=== PATIENT | male | born 1955 | race Caucasian/White ===

== ENCOUNTER 2022-10-31 12:40 | Emergency (ER) | payer MEDICARE, MEDICAID ==
[2022-10-31] MEDS: Albuterol/Ipratropium 3.0-0.5 MG/3 ML Neb Soln NEB ONE (13:20)
[2022-10-31] MEDS: Ketorolac 30 MG/ML SDV IVPUSH ONE (13:23)
[2022-10-31] MEDS: Dexamethasone 4 MG/ML SDV IVPUSH ONE (13:27)
[2022-10-31] MEDS: Iopamidol 755 Mg/ML 100 ML Bottle IVPUSH ONE (14:06)
[2022-10-31 14:31] LABS: CORONAVIRUS COVID-19 NAA NEGATIVE (NEGATIVE); RESPIRATORY SYNCYTIAL VIR NAA NEGATIVE (NEGATIVE)
[2022-10-31] MEDS: Sodium Chloride 0.9% 1,000 ML IV ONE ×4 (14:43→16:49)
[2022-10-31] MEDS ORDERED: Sodium Chloride 0.9% 1,000 ML IV SCH (16:45)
[2022-10-31] MEDS: Piperacillin/Tazobactam 4.5 GM in Sodium Chloride 0.9% 100 ML IV ONE (16:51)
== END 2022-10-31 17:45 ==
LOC: CC.ED 12:40
DX: A41.9 Sepsis, unspecified organism (principal); R65.20 Severe sepsis without septic shock; J96.01 Acute respiratory failure with hypoxia; N30.01 Acute cystitis with hematuria; J18.9 Pneumonia, unspecified organism; Z20.822 Contact with and (suspected) exposure to COVID-19
CPT/HCPCS: 0241U; 36415; 70450; 71045; 71275; 74177; 80053; 81001; 82800; 82947; 83605; 83735; 83880; 84484; 85025; 87040; 87086; 87088; 87186; 93005; 93010; 94640; 96361; 96365; 96367; 96375; 99285; 99285-25; J1100; J1885; J2543; J3370; J7030; J7050; J7620-GY; Q9967

== ENCOUNTER 2023-04-14 18:00 | Emergency (ER) | payer MEDICARE, MEDICAID ==
[2023-04-14 18:35] LABS: BASOPHILS ABSOLUTE AUTO 0.02 10^3/uL (0.00-0.50); BASOPHILS PERCENT AUTO 0.3 % (0-1); EOSINOPHILS ABSOLUTE AUTO 0.18 10^3/uL (0.00-1.50); EOSINOPHILS PERCENT AUTO 2.3 % (0-6); HEMATOCRIT 35.6 % (42.0-52.0); HEMOGLOBIN 11.4 g/dL (14.0-18.0); IMMATURE GRAN ABSOLUTE AUTO 0.07 10^3/uL (0.00-0.49); IMMATURE GRAN PERCENT AUTO 0.9 % (0.0-4.9); LYMPHOCYTES ABSOLUTE AUTO 1.66 10^3/uL (0.60-5.00); LYMPHOCYTES PERCENT AUTO 21.1 % (24-44); MEAN CORPUSCULAR HEMOGLOBIN 31.8 pg (27.0-32.0); MEAN CORPUSCULAR VOLUME 99.2 fL (83.0-97.0); MONOCYTES ABSOLUTE AUTO 0.61 10^3/uL (0.00-1.50); MONOCYTES PERCENT AUTO 7.7 % (0-10); NEUTROPHILS ABSOLUTE AUTO 5.34 x10^3/uL (1.80-8.00); NEUTROPHILS PERCENT AUTO 67.7 % (41-71); PLATELET COUNT,PLT 231 10^3/uL (150-400); RED BLOOD CELL COUNT 3.59 x10^6/uL (4.50-6.00); WHITE BLOOD CELL COUNT,WBC 7.9 10^3/uL (4.0-11.0)
[2023-04-14 18:37] LABS: APPEARANCE,URINE CLEAR (CLEAR); BILIRUBIN,URINE NEGATIVE (NEGATIVE); COLOR,URINE YELLOW (YELLOW); GLUCOSE,URINE NEGATIVE (NEGATIVE); KETONES,URINE NEGATIVE (NEGATIVE); LEUKOCYTE ESTERASE,URINE NEGATIVE (NEGATIVE); NITRITE,URINE NEGATIVE (NEGATIVE); OCCULT BLOOD,URINE TRACE-INTACT (NEGATIVE); PROTEIN,URINE TRACE mg/dL (NEGATIVE); UROBILINOGEN,URINE 0.2 EU/dL (0.2-1.0)
[2023-04-14 18:45] LABS: ALBUMIN 2.7 g/dL (3.4-5.0); BACTERIA,URINE OCCASIONAL /HPF (NOT SEEN); BILIRUBIN TOTAL 0.2 mg/dL (0.0-1.0); CALCIUM 8.9 mg/dL (8.4-10.1); EST CRCL DRUG DOSING (CG) 24.49 mL/min; POTASSIUM,K 5.4 mEq/L (3.5-5.0); PROTEIN TOTAL,TP 7.9 g/dL (6.4-8.2); SQUAMOUS EPITHELIAL CELLS,UR MODERATE /HPF (NOT SEEN)
[2023-04-14 18:48] LABS: CREATININE 3.3 mg/dL (0.7-1.3)
[2023-04-14] MEDS ORDERED: Sodium Chloride 0.9% 1,000 ML IV ONE (18:53)
== END 2023-04-14 21:45 | disposition home or self-care (01) ==
LOC: CC.ED 18:00
DX: I13.0 Hypertensive heart and chronic kidney disease with heart failure and stage 1 through stage 4 chronic kidney disease, or unspecified chronic kidney disease (principal); I50.9 Heart failure, unspecified; N18.31 Chronic kidney disease, stage 3a; E11.22 Type 2 diabetes mellitus with diabetic chronic kidney disease; I48.91 Unspecified atrial fibrillation; E78.00 Pure hypercholesterolemia, unspecified; M19.90 Unspecified osteoarthritis, unspecified site; E66.9 Obesity, unspecified; Z79.01 Long term (current) use of anticoagulants; Z79.4 Long term (current) use of insulin; Z79.84 Long term (current) use of oral hypoglycemic drugs; Z79.82 Long term (current) use of aspirin; Z79.899 Other long term (current) drug therapy
CPT/HCPCS: 36415; 71045; 80053; 81001; 85025; 87804; 96360; 96361; 99284; 99285-25; J7030; U0002

== ENCOUNTER 2023-07-02 15:45 | Inpatient (IN) | payer MEDICARE, MEDICAID ==
[2023-07-02] MEDS ORDERED: Sodium Chloride 0.9% 1,000 ML IV ONE ×2 (15:56→17:34)
[2023-07-02] MEDS ORDERED: Albuterol/Ipratropium 3.0-0.5 MG/3 ML Neb Soln NEB ONE (15:57)
[2023-07-02 16:23] LABS: BASOPHILS ABSOLUTE AUTO 0.04 10^3/uL (0.00-0.50); BASOPHILS PERCENT AUTO 0.4 % (0-1); EOSINOPHILS ABSOLUTE AUTO 0.02 10^3/uL (0.00-1.50); EOSINOPHILS PERCENT AUTO 0.2 % (0-6); HEMATOCRIT 39.2 % (42.0-52.0); IMMATURE GRAN ABSOLUTE AUTO 0.05 10^3/uL (0.00-0.49); IMMATURE GRAN PERCENT AUTO 0.5 % (0.0-4.9); LYMPHOCYTES ABSOLUTE AUTO 1.36 10^3/uL (0.60-5.00); LYMPHOCYTES PERCENT AUTO 13.4 % (24-44); MEAN CORPUSCULAR HEMOGLOBIN 31.9 pg (27.0-32.0); MEAN CORPUSCULAR HGB CONC 33.2 g/dL (32.0-36.0); MEAN CORPUSCULAR VOLUME 96.3 fL (83.0-97.0); MONOCYTES ABSOLUTE AUTO 0.95 10^3/uL (0.00-1.50); MONOCYTES PERCENT AUTO 9.3 % (0-10); NEUTROPHILS ABSOLUTE AUTO 7.75 x10^3/uL (1.80-8.00); NEUTROPHILS PERCENT AUTO 76.2 % (41-71); PLATELET COUNT,PLT 200 10^3/uL (150-400); RED BLOOD CELL COUNT 4.07 x10^6/uL (4.50-6.00); WHITE BLOOD CELL COUNT,WBC 10.2 10^3/uL (4.0-11.0)
[2023-07-02 16:38] LABS: LACTIC ACID 3.4 mmol/L (0.4-2.0)
[2023-07-02 16:45] LABS: ALBUMIN 2.6 g/dL (3.4-5.0); BILIRUBIN TOTAL 0.4 mg/dL (0.0-1.0); C-REACTIVE PROTEIN 5.36 mg/dL (<=0.30); CALCIUM 9.1 mg/dL (8.4-10.1); CREATININE 2.3 mg/dL (0.7-1.3); EST CRCL DRUG DOSING (CG) 34.68 mL/min; POTASSIUM,K 3.6 mEq/L (3.5-5.0); PROTEIN TOTAL,TP 7.7 g/dL (6.4-8.2)
[2023-07-02 17:00] LABS: INFLUENZA A NAA NEGATIVE (NEGATIVE); INFLUENZA B NAA NEGATIVE (NEGATIVE); RESPIRATORY SYNCYTIAL VIR NAA NEGATIVE (NEGATIVE)
[2023-07-02 17:02] LABS: CORONAVIRUS COVID-19 NAA POSITIVE (NEGATIVE)
[2023-07-02 17:48] LABS: APPEARANCE,URINE SLIGHTLY CLOUDY (CLEAR); BILIRUBIN,URINE NEGATIVE (NEGATIVE); COLOR,URINE YELLOW (YELLOW); GLUCOSE,URINE NEGATIVE (NEGATIVE); KETONES,URINE NEGATIVE (NEGATIVE); LEUKOCYTE ESTERASE,URINE SMALL (NEGATIVE); NITRITE,URINE POSITIVE (NEGATIVE); OCCULT BLOOD,URINE MODERATE (NEGATIVE); PROTEIN,URINE NEGATIVE (NEGATIVE); UROBILINOGEN,URINE 0.2 EU/dL (0.2-1.0)
[2023-07-02 17:54] LABS: RBC,URINE 50-75 /HPF (0-5)
[2023-07-02] MEDS ORDERED: cefTRIAXone 2 GM Vial IVPUSH ONE (17:54)
[2023-07-02 17:55] LABS: BACTERIA,URINE FEW /HPF (NOT SEEN); SQUAMOUS EPITHELIAL CELLS,UR OCCASIONAL /HPF (NOT SEEN)
[2023-07-02] MEDS ORDERED: Azithromycin 500 MG in Sodium Chloride 0.9% 250 ML IV SCH (18:30)
[2023-07-02 18:50] LABS: INR 3.2 (0.92-1.18); PROTHROMBIN TIME 31.8 SEC (9.3-11.3)
[2023-07-02] MEDS ORDERED: Albuterol 0.083% 2.5 MG/3 ML Neb Soln NEB ONE (19:01)
[2023-07-02] MEDS ORDERED: Ondansetron 4 MG Tab.DIS PO PRN (19:04)
[2023-07-02] MEDS ORDERED: REMDESIVIR 200 MG in Sodium Chloride 0.9% 250 ML IV ONE (19:04)
[2023-07-02] MEDS ORDERED: Albuterol 0.083% 2.5 MG/3 ML Neb Soln NEB PRN (19:04)
[2023-07-02] MEDS ORDERED: Docusate Sodium 100 MG Cap PO PRN (19:04)
[2023-07-02] MEDS ORDERED: Acetaminophen 325 MG Tab PO PRN (19:04)
[2023-07-02] MEDS ORDERED: Polyethylene Glycol 3350 Powder 17 GM Packet PO PRN (19:04)
[2023-07-02] MEDS ORDERED: Ondansetron 4 MG/2 ML SDV IV PRN (19:04)
[2023-07-02] MEDS ORDERED: Sodium Chloride 0.9% 10 ML Syringe FLUSH PRN (19:04)
[2023-07-02] MEDS ORDERED: Acetaminophen 650 MG Supp RECTAL PRN (19:04)
[2023-07-02 19:38] LABS: ALBUMIN 2.5 g/dL (3.4-5.0); BILIRUBIN DIRECT 0.1 mg/dL (0.0-0.3); BILIRUBIN TOTAL 0.3 mg/dL (0.0-1.0); CALCIUM 8.7 mg/dL (8.4-10.1); CREATININE 2.2 mg/dL (0.7-1.3); EST CRCL DRUG DOSING (CG) 36.25 mL/min; POTASSIUM,K 3.1 mEq/L (3.5-5.0); PROTEIN TOTAL,TP 7.6 g/dL (6.4-8.2)
[2023-07-02] MEDS ORDERED: 50% Dextrose in Water 50 ML Syringe ONE (19:43)
[2023-07-02] MEDS ORDERED: 50% Dextrose in Water 50 ML Syringe IVPUSH ONE (19:45)
[2023-07-02] MEDS: Sodium Chloride 0.9% 1,000 ML IV SCH (19:47)
[2023-07-02] MEDS: methylPREDNISolone Sodium Succinate 125 MG/2 ML SDV IVPUSH SCH (19:51)
[2023-07-02] MEDS: Albuterol/Ipratropium 3.0-0.5 MG/3 ML Neb Soln NEB SCH (19:51)
[2023-07-02] MEDS ORDERED: Potassium Chloride 10 MEQ Tab.ER PO ONE (20:42)
[2023-07-02] MEDS ORDERED: guaiFENesin/Dextromethorphan 100-10 MG/5 ML Soln 5 ML Cup PO PRN (20:44)
[2023-07-02] MEDS ORDERED: Magnesium Hydroxide 400 MG/5 ML Susp 30 ML Cup PO PRN (20:44)
[2023-07-02] MEDS ORDERED: Warfarin 5 MG Tab PO SCH (20:45)
[2023-07-02] MEDS ORDERED: 50% Dextrose in Water 50 ML Syringe IVPUSH PRN (20:49)
[2023-07-02] MEDS ORDERED: Insulin Regular, Human 100 Units/ML 3 ML Vial IV ONE ×2 (20:49)
[2023-07-02] MEDS ORDERED: Glucagon,Human Recombinant 1 MG Vial IM PRN (20:49)
[2023-07-03] MEDS ORDERED: Insulin Regular, Human 100 Units/ML 3 ML Vial SUBCUT SCH (06:00)
[2023-07-03] MEDS: Sodium Chloride 0.9% 1,000 ML IV SCH ×2 (07:05→23:41)
[2023-07-03] MEDS ORDERED: Divalproex Sodium 250 MG Tab.ER PO SCH (08:00)
[2023-07-03] MEDS: Insulin Regular, Human 100 Units/ML 3 ML Vial SUBCUT SCH ×4 (08:14→20:09)
[2023-07-03] MEDS: Albuterol/Ipratropium 3.0-0.5 MG/3 ML Neb Soln NEB SCH ×4 (08:15→19:29)
[2023-07-03] MEDS: Carvedilol 12.5 MG Tab PO SCH ×2 (08:16→17:24)
[2023-07-03] MEDS: metFORMIN 500 MG Tab PO SCH ×2 (08:16→17:24)
[2023-07-03] MEDS: Cyanocobalamin (Vitamin B12) 1,000 MCG Tab PO SCH (08:16)
[2023-07-03] MEDS: Aspirin 81 MG Tab.EC PO SCH (08:17)
[2023-07-03] MEDS: Carbidopa/Levodopa 25-100 MG Tab PO SCH ×2 (08:17→19:31)
[2023-07-03] MEDS: Potassium Chloride 10 MEQ Tab.ER PO SCH ×2 (08:17→19:29)
[2023-07-03] MEDS: Gabapentin 300 MG Cap PO SCH ×3 (08:17→19:30)
[2023-07-03] MEDS: Divalproex Sodium 250 MG Tab.ER PO SCH ×3 (08:17→19:28)
[2023-07-03] MEDS: Propranolol 60 MG Cap.ER PO SCH (08:17)
[2023-07-03] MEDS: Allopurinol 100 MG Tab PO SCH ×2 (08:17→19:32)
[2023-07-03] MEDS: ZIPRASIDONE HCL 80 MG PO SCH ×2 (08:18→19:34)
[2023-07-03] MEDS: LURASIDONE 40 MG PO SCH (08:19)
[2023-07-03 08:21] LABS: HEMATOCRIT 37.3 % (42.0-52.0); HEMOGLOBIN 12.3 g/dL (14.0-18.0); IMMATURE GRAN ABSOLUTE AUTO 0.02 10^3/uL (0.00-0.49); IMMATURE GRAN PERCENT AUTO 0.2 % (0.0-4.9); LYMPHOCYTES ABSOLUTE AUTO 0.66 10^3/uL (0.60-5.00); LYMPHOCYTES PERCENT AUTO 5.9 % (24-44); MEAN CORPUSCULAR HEMOGLOBIN 31.9 pg (27.0-32.0); MEAN CORPUSCULAR VOLUME 96.6 fL (83.0-97.0); MONOCYTES ABSOLUTE AUTO 0.21 10^3/uL (0.00-1.50); MONOCYTES PERCENT AUTO 1.9 % (0-10); NEUTROPHILS ABSOLUTE AUTO 10.28 x10^3/uL (1.80-8.00); PLATELET COUNT,PLT 184 10^3/uL (150-400); RED BLOOD CELL COUNT 3.86 x10^6/uL (4.50-6.00); WHITE BLOOD CELL COUNT,WBC 11.2 10^3/uL (4.0-11.0)
[2023-07-03 08:29] LABS: INR 4.57 (0.92-1.18)
[2023-07-03 08:36] LABS: ALBUMIN 2.2 g/dL (3.4-5.0); BILIRUBIN TOTAL 0.2 mg/dL (0.0-1.0); C-REACTIVE PROTEIN 6.59 mg/dL (<=0.30); CALCIUM 8.5 mg/dL (8.4-10.1); CREATININE 1.7 mg/dL (0.7-1.3); EST CRCL DRUG DOSING (CG) 46.92 mL/min; POTASSIUM,K 4.1 mEq/L (3.5-5.0); PROTEIN TOTAL,TP 7.3 g/dL (6.4-8.2)
[2023-07-03 09:28] LABS: LACTIC ACID 1.9 mmol/L (0.4-2.0)
[2023-07-03] MEDS ORDERED: Warfarin 2.5 MG Tab PO SCH (12:00)
[2023-07-03] MEDS: REMDESIVIR 100 MG in Sodium Chloride 0.9% 100 ML IV SCH (17:46)
[2023-07-03] MEDS: cefTRIAXone 2 GM Vial IVPUSH SCH (17:49)
[2023-07-03] MEDS ORDERED: Azithromycin 500 MG in Sodium Chloride 0.9% 250 ML IV SCH (18:00)
[2023-07-03] MEDS: Amitriptyline 25 MG Tab PO SCH (19:29)
[2023-07-03] MEDS: atorvaSTATin 20 MG Tab PO SCH (19:30)
[2023-07-03] MEDS: oxyCODONE 5 MG Tab PO SCH (19:30)
[2023-07-03] MEDS: Acetaminophen 500 MG Tab PO SCH (19:31)
[2023-07-03] MEDS: methylPREDNISolone Sodium Succinate 125 MG/2 ML SDV IVPUSH SCH (19:31)
[2023-07-03] MEDS: Azithromycin 500 MG in Sodium Chloride 0.9% 250 ML IV SCH (19:32)
[2023-07-03] MEDS ORDERED: Oxymetazoline 0.05% Nasal Spray 30 ML Bottle NAS ONE (20:58)
[2023-07-03] MEDS ORDERED: Oxymetazoline 0.05% Nasal Spray 30 ML Bottle ONE (21:07)
[2023-07-03] MEDS: Sodium Chloride 0.65% Nasal Spray 45 ML Bottle NAS SCH (21:29)
[2023-07-04] MEDS: Sodium Chloride 0.65% Nasal Spray 45 ML Bottle NAS SCH ×6 (01:22→22:23)
[2023-07-04 07:29] LABS: HEMOGLOBIN 11.2 g/dL (14.0-18.0); IMMATURE GRAN ABSOLUTE AUTO 0.03 10^3/uL (0.00-0.49); IMMATURE GRAN PERCENT AUTO 0.4 % (0.0-4.9); LYMPHOCYTES ABSOLUTE AUTO 0.85 10^3/uL (0.60-5.00); LYMPHOCYTES PERCENT AUTO 11.4 % (24-44); MEAN CORPUSCULAR HEMOGLOBIN 31.9 pg (27.0-32.0); MEAN CORPUSCULAR HGB CONC 32.9 g/dL (32.0-36.0); MEAN CORPUSCULAR VOLUME 96.9 fL (83.0-97.0); MONOCYTES ABSOLUTE AUTO 0.18 10^3/uL (0.00-1.50); MONOCYTES PERCENT AUTO 2.4 % (0-10); NEUTROPHILS ABSOLUTE AUTO 6.39 x10^3/uL (1.80-8.00); NEUTROPHILS PERCENT AUTO 85.8 % (41-71); PLATELET COUNT,PLT 191 10^3/uL (150-400); RED BLOOD CELL COUNT 3.51 x10^6/uL (4.50-6.00); WHITE BLOOD CELL COUNT,WBC 7.5 10^3/uL (4.0-11.0)
[2023-07-04] MEDS: LURASIDONE 40 MG PO SCH (07:48)
[2023-07-04 07:49] LABS: BILIRUBIN TOTAL 0.2 mg/dL (0.0-1.0); C-REACTIVE PROTEIN 4.38 mg/dL (<=0.30); CALCIUM 8.4 mg/dL (8.4-10.1); CREATININE 1.4 mg/dL (0.7-1.3); EST CRCL DRUG DOSING (CG) 56.97 mL/min; POTASSIUM,K 4.2 mEq/L (3.5-5.0); PROTEIN TOTAL,TP 6.6 g/dL (6.4-8.2)
[2023-07-04] MEDS: Cyanocobalamin (Vitamin B12) 1,000 MCG Tab PO SCH (07:49)
[2023-07-04] MEDS: ZIPRASIDONE HCL 80 MG PO SCH ×2 (07:49→19:47)
[2023-07-04] MEDS: Albuterol/Ipratropium 3.0-0.5 MG/3 ML Neb Soln NEB SCH ×4 (07:49→19:46)
[2023-07-04 07:50] LABS: PROTHROMBIN TIME 50.1 SEC (9.3-11.3)
[2023-07-04] MEDS: Carbidopa/Levodopa 25-100 MG Tab PO SCH ×2 (07:50→19:44)
[2023-07-04] MEDS: Potassium Chloride 10 MEQ Tab.ER PO SCH ×2 (07:50→19:44)
[2023-07-04] MEDS: Propranolol 60 MG Cap.ER PO SCH (07:50)
[2023-07-04] MEDS: Allopurinol 100 MG Tab PO SCH ×2 (07:50→19:44)
[2023-07-04] MEDS: Divalproex Sodium 250 MG Tab.ER PO SCH ×3 (07:50→19:44)
[2023-07-04] MEDS: Gabapentin 300 MG Cap PO SCH ×3 (07:51→19:44)
[2023-07-04] MEDS: Aspirin 81 MG Tab.EC PO SCH (07:51)
[2023-07-04] MEDS: Carvedilol 12.5 MG Tab PO SCH ×2 (07:51→17:10)
[2023-07-04] MEDS: metFORMIN 500 MG Tab PO SCH ×2 (07:51→17:10)
[2023-07-04] MEDS: Insulin Regular, Human 100 Units/ML 3 ML Vial SUBCUT SCH ×4 (07:52→20:05)
[2023-07-04 07:55] LABS: INR 5.1 (0.92-1.18)
[2023-07-04] MEDS: cefTRIAXone 2 GM Vial IVPUSH SCH (17:29)
[2023-07-04] MEDS: REMDESIVIR 100 MG in Sodium Chloride 0.9% 100 ML IV SCH (17:29)
[2023-07-04] MEDS: Sodium Chloride 0.9% 1,000 ML IV SCH (19:41)
[2023-07-04] MEDS: Azithromycin 500 MG in Sodium Chloride 0.9% 250 ML IV SCH (19:42)
[2023-07-04] MEDS: methylPREDNISolone Sodium Succinate 125 MG/2 ML SDV IVPUSH SCH (19:43)
[2023-07-04] MEDS: oxyCODONE 5 MG Tab PO SCH (19:44)
[2023-07-04] MEDS: Acetaminophen 500 MG Tab PO SCH (19:44)
[2023-07-04] MEDS: Amitriptyline 25 MG Tab PO SCH (19:45)
[2023-07-04] MEDS: atorvaSTATin 20 MG Tab PO SCH (19:45)
[2023-07-05] MEDS: Sodium Chloride 0.65% Nasal Spray 45 ML Bottle NAS SCH ×5 (01:37→17:30)
[2023-07-05 07:36] LABS: BASOPHILS ABSOLUTE AUTO 0.01 10^3/uL (0.00-0.50); BASOPHILS PERCENT AUTO 0.2 % (0-1); HEMATOCRIT 36.1 % (42.0-52.0); HEMOGLOBIN 11.6 g/dL (14.0-18.0); IMMATURE GRAN ABSOLUTE AUTO 0.03 10^3/uL (0.00-0.49); IMMATURE GRAN PERCENT AUTO 0.5 % (0.0-4.9); LYMPHOCYTES ABSOLUTE AUTO 0.92 10^3/uL (0.60-5.00); LYMPHOCYTES PERCENT AUTO 14.3 % (24-44); MEAN CORPUSCULAR HEMOGLOBIN 31.8 pg (27.0-32.0); MEAN CORPUSCULAR HGB CONC 32.1 g/dL (32.0-36.0); MEAN CORPUSCULAR VOLUME 98.9 fL (83.0-97.0); MONOCYTES ABSOLUTE AUTO 0.18 10^3/uL (0.00-1.50); MONOCYTES PERCENT AUTO 2.8 % (0-10); NEUTROPHILS ABSOLUTE AUTO 5.28 x10^3/uL (1.80-8.00); NEUTROPHILS PERCENT AUTO 82.2 % (41-71); PLATELET COUNT,PLT 200 10^3/uL (150-400); RED BLOOD CELL COUNT 3.65 x10^6/uL (4.50-6.00); WHITE BLOOD CELL COUNT,WBC 6.4 10^3/uL (4.0-11.0)
[2023-07-05 07:57] LABS: BILIRUBIN TOTAL 0.2 mg/dL (0.0-1.0); C-REACTIVE PROTEIN 2.2 mg/dL (<=0.30); CALCIUM 8.5 mg/dL (8.4-10.1); CREATININE 1.5 mg/dL (0.7-1.3); EST CRCL DRUG DOSING (CG) 53.17 mL/min; POTASSIUM,K 4.1 mEq/L (3.5-5.0); PROTEIN TOTAL,TP 6.4 g/dL (6.4-8.2)
[2023-07-05] MEDS: Allopurinol 100 MG Tab PO SCH ×2 (08:00→19:15)
[2023-07-05] MEDS: Albuterol/Ipratropium 3.0-0.5 MG/3 ML Neb Soln NEB SCH ×4 (08:00→19:16)
[2023-07-05] MEDS: Potassium Chloride 10 MEQ Tab.ER PO SCH ×2 (08:01→19:15)
[2023-07-05] MEDS: Carvedilol 12.5 MG Tab PO SCH ×2 (08:01→17:13)
[2023-07-05] MEDS: Aspirin 81 MG Tab.EC PO SCH (08:01)
[2023-07-05] MEDS: Cyanocobalamin (Vitamin B12) 1,000 MCG Tab PO SCH (08:01)
[2023-07-05] MEDS: Propranolol 60 MG Cap.ER PO SCH (08:01)
[2023-07-05] MEDS: Carbidopa/Levodopa 25-100 MG Tab PO SCH ×2 (08:01→19:14)
[2023-07-05] MEDS: Gabapentin 300 MG Cap PO SCH ×3 (08:01→19:14)
[2023-07-05] MEDS: Divalproex Sodium 250 MG Tab.ER PO SCH ×3 (08:01→19:15)
[2023-07-05] MEDS: metFORMIN 500 MG Tab PO SCH ×2 (08:02→17:13)
[2023-07-05] MEDS: ZIPRASIDONE HCL 80 MG PO SCH ×2 (08:08→19:52)
[2023-07-05] MEDS: LURASIDONE 40 MG PO SCH (08:09)
[2023-07-05] MEDS: Insulin Regular, Human 100 Units/ML 3 ML Vial SUBCUT SCH ×4 (08:11→19:54)
[2023-07-05 08:14] LABS: INR 4.04 (0.92-1.18)
[2023-07-05] MEDS: cefTRIAXone 2 GM Vial IVPUSH SCH (17:36)
[2023-07-05] MEDS: REMDESIVIR 100 MG in Sodium Chloride 0.9% 100 ML IV SCH (17:37)
[2023-07-05] MEDS: Acetaminophen 500 MG Tab PO SCH (19:14)
[2023-07-05] MEDS: oxyCODONE 5 MG Tab PO SCH (19:14)
[2023-07-05] MEDS: atorvaSTATin 20 MG Tab PO SCH (19:15)
[2023-07-05] MEDS: methylPREDNISolone Sodium Succinate 125 MG/2 ML SDV IVPUSH SCH (19:15)
[2023-07-05] MEDS: Amitriptyline 25 MG Tab PO SCH (19:15)
[2023-07-05] MEDS: Azithromycin 500 MG in Sodium Chloride 0.9% 250 ML IV SCH (19:16)
[2023-07-05] MEDS ORDERED: Sodium Chloride 0.65% Nasal Spray 45 ML Bottle NAS PRN (21:29)
[2023-07-06] MEDS: Albuterol/Ipratropium 3.0-0.5 MG/3 ML Neb Soln NEB SCH ×2 (07:20→11:49)
[2023-07-06] MEDS: LURASIDONE 40 MG PO SCH (07:21)
[2023-07-06] MEDS: metFORMIN 500 MG Tab PO SCH (07:21)
[2023-07-06] MEDS: Potassium Chloride 10 MEQ Tab.ER PO SCH (07:21)
[2023-07-06] MEDS: Propranolol 60 MG Cap.ER PO SCH (07:21)
[2023-07-06] MEDS: Allopurinol 100 MG Tab PO SCH (07:22)
[2023-07-06] MEDS: Carvedilol 12.5 MG Tab PO SCH (07:22)
[2023-07-06] MEDS: Aspirin 81 MG Tab.EC PO SCH (07:23)
[2023-07-06] MEDS: ZIPRASIDONE HCL 80 MG PO SCH (07:23)
[2023-07-06] MEDS: Carbidopa/Levodopa 25-100 MG Tab PO SCH (07:23)
[2023-07-06] MEDS: Divalproex Sodium 250 MG Tab.ER PO SCH (07:23)
[2023-07-06] MEDS: Gabapentin 300 MG Cap PO SCH (07:23)
[2023-07-06] MEDS: Cyanocobalamin (Vitamin B12) 1,000 MCG Tab PO SCH (07:23)
[2023-07-06] MEDS: Insulin Regular, Human 100 Units/ML 3 ML Vial SUBCUT SCH ×2 (07:25→11:47)
[2023-07-06 08:01] LABS: HEMATOCRIT 36.8 % (42.0-52.0); IMMATURE GRAN ABSOLUTE AUTO 0.06 10^3/uL (0.00-0.49); IMMATURE GRAN PERCENT AUTO 0.9 % (0.0-4.9); LYMPHOCYTES ABSOLUTE AUTO 0.97 10^3/uL (0.60-5.00); LYMPHOCYTES PERCENT AUTO 15.2 % (24-44); MEAN CORPUSCULAR HEMOGLOBIN 31.7 pg (27.0-32.0); MEAN CORPUSCULAR HGB CONC 32.6 g/dL (32.0-36.0); MEAN CORPUSCULAR VOLUME 97.4 fL (83.0-97.0); MONOCYTES ABSOLUTE AUTO 0.09 10^3/uL (0.00-1.50); MONOCYTES PERCENT AUTO 1.4 % (0-10); NEUTROPHILS ABSOLUTE AUTO 5.28 x10^3/uL (1.80-8.00); NEUTROPHILS PERCENT AUTO 82.5 % (41-71); PLATELET COUNT,PLT 193 10^3/uL (150-400); RED BLOOD CELL COUNT 3.78 x10^6/uL (4.50-6.00); WHITE BLOOD CELL COUNT,WBC 6.4 10^3/uL (4.0-11.0)
[2023-07-06 08:27] LABS: INR 3.33 (0.92-1.18); PROTHROMBIN TIME 33.2 SEC (9.3-11.3)
[2023-07-06 08:28] LABS: ALBUMIN 2.1 g/dL (3.4-5.0); BILIRUBIN TOTAL 0.3 mg/dL (0.0-1.0); C-REACTIVE PROTEIN 1.28 mg/dL (<=0.30); CALCIUM 8.7 mg/dL (8.4-10.1); CREATININE 1.2 mg/dL (0.7-1.3); EST CRCL DRUG DOSING (CG) 66.46 mL/min; POTASSIUM,K 4.4 mEq/L (3.5-5.0); PROTEIN TOTAL,TP 6.5 g/dL (6.4-8.2)
== END 2023-07-06 13:05 | disposition home or self-care (01) | DRG 177 ==
LOC: CC.ED 15:45 → UNDOADMIN 18:30 → CC.MS 18:30
PROVIDERS: ADMIT Nurse Practitioner Family; ATTEND Nurse Practitioner Family
PROC: XW033E5 Introduction of Remdesivir Anti-infective into Peripheral Vein, Percutaneous Approach, New Technology Group 5 (ICD-10-PCS; principal; 2023-07-02)
PROC: 0T9B70Z Drainage of Bladder with Drainage Device, Via Natural or Artificial Opening (ICD-10-PCS; 2023-07-02)
PROC: 093K7ZZ Control Bleeding in Nasal Mucosa and Soft Tissue, Via Natural or Artificial Opening (ICD-10-PCS; 2023-07-03)
DX: U07.1 COVID-19 (principal); J12.82 Pneumonia due to coronavirus disease 2019; I13.0 Hypertensive heart and chronic kidney disease with heart failure and stage 1 through stage 4 chronic kidney disease, or unspecified chronic kidney disease; E87.20 Acidosis, unspecified; N30.01 Acute cystitis with hematuria; Z68.41 Body mass index [BMI] 40.0-44.9, adult; I25.10 Atherosclerotic heart disease of native coronary artery without angina pectoris; E78.00 Pure hypercholesterolemia, unspecified; I50.9 Heart failure, unspecified; I48.91 Unspecified atrial fibrillation; G47.30 Sleep apnea, unspecified; K59.09 Other constipation; M19.90 Unspecified osteoarthritis, unspecified site; M25.512 Pain in left shoulder; G89.29 Other chronic pain; F31.9 Bipolar disorder, unspecified; E11.22 Type 2 diabetes mellitus with diabetic chronic kidney disease; E11.649 Type 2 diabetes mellitus with hypoglycemia without coma; E66.9 Obesity, unspecified; I44.0 Atrioventricular block, first degree; N18.32 Chronic kidney disease, stage 3b; R04.0 Epistaxis; R09.02 Hypoxemia; D64.9 Anemia, unspecified; Z79.899 Other long term (current) drug therapy; Z79.4 Long term (current) use of insulin; Z79.82 Long term (current) use of aspirin; Z79.01 Long term (current) use of anticoagulants; Z86.711 Personal history of pulmonary embolism; Z89.612 Acquired absence of left leg above knee; Z86.718 Personal history of other venous thrombosis and embolism
CPT/HCPCS: 0241U; 36415; 71045; 80053; 81001; 82248; 83605; 83880; 84484; 85025; 85379; 85610; 86140; 87040; 87070; 87086; 87205; 93005; 93010; 94640; 96361; 96374; 99285-25; A9270-GY; J0248; J0456; J0696; J1815-GY; J2930; J3490; J7030; J7050; J7613-GY; J7620-GY

== ENCOUNTER 2023-07-13 17:56 | Emergency (ER) | payer MEDICARE, MEDICAID ==
[2023-07-13 18:52] LABS: BASOPHILS ABSOLUTE AUTO 0.01 10^3/uL (0.00-0.50); EOSINOPHILS ABSOLUTE AUTO 0.02 10^3/uL (0.00-1.50); EOSINOPHILS PERCENT AUTO 0.1 % (0-6); HEMATOCRIT 39.4 % (42.0-52.0); HEMOGLOBIN 12.7 g/dL (14.0-18.0); IMMATURE GRAN ABSOLUTE AUTO 0.05 10^3/uL (0.00-0.49); IMMATURE GRAN PERCENT AUTO 0.2 % (0.0-4.9); LYMPHOCYTES ABSOLUTE AUTO 1.32 10^3/uL (0.60-5.00); LYMPHOCYTES PERCENT AUTO 6.2 % (24-44); MEAN CORPUSCULAR HEMOGLOBIN 31.9 pg (27.0-32.0); MEAN CORPUSCULAR HGB CONC 32.2 g/dL (32.0-36.0); MONOCYTES ABSOLUTE AUTO 1.12 10^3/uL (0.00-1.50); MONOCYTES PERCENT AUTO 5.3 % (0-10); NEUTROPHILS ABSOLUTE AUTO 18.72 x10^3/uL (1.80-8.00); NEUTROPHILS PERCENT AUTO 88.2 % (41-71); PLATELET COUNT,PLT 235 10^3/uL (150-400); RED BLOOD CELL COUNT 3.98 x10^6/uL (4.50-6.00)
[2023-07-13 19:00] LABS: WHITE BLOOD CELL COUNT,WBC 21.2 10^3/uL (4.0-11.0)
[2023-07-13] MEDS: Dexamethasone 10 MG/ML SDV IVPUSH ONE (19:12)
[2023-07-13] MEDS: Albuterol/Ipratropium 3.0-0.5 MG/3 ML Neb Soln NEB ONE (19:13)
[2023-07-13] MEDS: Sodium Chloride 0.9% 1,000 ML IV ONE ×3 (19:13→21:39)
[2023-07-13 19:14] LABS: PTT,PARTIAL THROMBOPLSTIN TIME 52.3 SEC (20.0-30.0)
[2023-07-13 19:14] LABS: APPEARANCE,URINE CLEAR (CLEAR); BILIRUBIN,URINE NEGATIVE (NEGATIVE); COLOR,URINE YELLOW (YELLOW); GLUCOSE,URINE NEGATIVE (NEGATIVE); KETONES,URINE NEGATIVE (NEGATIVE); LEUKOCYTE ESTERASE,URINE NEGATIVE (NEGATIVE); NITRITE,URINE NEGATIVE (NEGATIVE); OCCULT BLOOD,URINE MODERATE (NEGATIVE); PROTEIN,URINE NEGATIVE (NEGATIVE); UROBILINOGEN,URINE 0.2 EU/dL (0.2-1.0)
[2023-07-13 19:16] LABS: LACTIC ACID 4.3 mmol/L (0.4-2.0)
[2023-07-13 19:17] LABS: ALBUMIN 2.5 g/dL (3.4-5.0); BILIRUBIN TOTAL 0.5 mg/dL (0.0-1.0); CREATININE 1.9 mg/dL (0.7-1.3); EST CRCL DRUG DOSING (CG) 41.98 mL/min; MAGNESIUM 2.2 mg/dL (1.8-2.4); POTASSIUM,K 4.4 mEq/L (3.5-5.0); PROTEIN TOTAL,TP 7.5 g/dL (6.4-8.2)
[2023-07-13 19:18] LABS: O2 DELIVERY DEVICE NASAL CANNULA
[2023-07-13 19:19] LABS: BASE EXCESS ARTERIAL 6.2 (-2.0-3.0); BICARBONATE,ARTERIAL 29.6 mm/L (22.0-26.0); O2 SATURATION ARTERIAL 90 % (95-98); PCO2 ARTERIAL 39 mm/Hg0 (35-45); PH,ARTERIAL 7.48 (7.35-7.45); PO2 ARTERIAL 54 mm/Hg (80-100)
[2023-07-13 19:25] LABS: BACTERIA,URINE NOT SEEN /HPF (NOT SEEN); EPITHELIAL CELLS,URINE NOT SEEN /HPF (NOT SEEN); MUCUS,URINE NOT SEEN /HPF (NOT SEEN); RBC,URINE 30-40 /HPF (0-5); WBC,URINE NOT SEEN /HPF (0-5)
[2023-07-13 19:32] LABS: INFLUENZA A NAA NEGATIVE (NEGATIVE); INFLUENZA B NAA NEGATIVE (NEGATIVE); RESPIRATORY SYNCYTIAL VIR NAA NEGATIVE (NEGATIVE)
[2023-07-13 19:33] LABS: CORONAVIRUS COVID-19 NAA POSITIVE (NEGATIVE)
[2023-07-13 19:36] LABS: INR 6.46 (0.92-1.18)
[2023-07-13] MEDS: Piperacillin/Tazobactam 4.5 GM in Sodium Chloride 0.9% 100 ML IV ONE (20:33)
[2023-07-13] MEDS: VANCOmycin 2 GM/400 ML 2 GM in Premix Bag 1 BAG IV ONE ×2 (21:08→22:06)
[2023-07-13] MEDS: Labetalol 100 MG/20 ML MDV IVPUSH ONE (21:13)
[2023-07-13] MEDS: Acetaminophen 650 MG Supp RECTAL ONE (21:18)
== END 2023-07-13 23:55 ==
LOC: CC.ED 17:56
DX: A41.9 Sepsis, unspecified organism (principal); R65.20 Severe sepsis without septic shock; J96.01 Acute respiratory failure with hypoxia; I13.0 Hypertensive heart and chronic kidney disease with heart failure and stage 1 through stage 4 chronic kidney disease, or unspecified chronic kidney disease; I50.9 Heart failure, unspecified; N18.9 Chronic kidney disease, unspecified; E11.22 Type 2 diabetes mellitus with diabetic chronic kidney disease; Z79.84 Long term (current) use of oral hypoglycemic drugs; I25.10 Atherosclerotic heart disease of native coronary artery without angina pectoris; E78.00 Pure hypercholesterolemia, unspecified; E66.9 Obesity, unspecified; Z79.01 Long term (current) use of anticoagulants; Z79.899 Other long term (current) drug therapy; Z68.41 Body mass index [BMI] 40.0-44.9, adult; Z20.822 Contact with and (suspected) exposure to COVID-19
CPT/HCPCS: 0241U; 36415; 36600; 51702; 71045; 80053; 81001; 82803; 82947; 83605; 83735; 83880; 84484; 85025; 85610; 85730; 87040; 93005; 93010; 96361; 96365; 96366; 96367; 96375; 99291; 99291-25; A9270-GY; J1100; J2543; J3370; J3490; J7030; J7620-GY

== ENCOUNTER 2023-08-25 12:42 | Inpatient (IN) | payer MEDICARE, MEDICAID ==
[2023-08-25 13:58] LABS: BASOPHILS ABSOLUTE AUTO 0.04 10^3/uL (0.00-0.50); BASOPHILS PERCENT AUTO 0.4 % (0-1); EOSINOPHILS PERCENT AUTO 2.2 % (0-6); HEMATOCRIT 34.8 % (42.0-52.0); HEMOGLOBIN 10.9 g/dL (14.0-18.0); IMMATURE GRAN ABSOLUTE AUTO 0.05 10^3/uL (0.00-0.49); IMMATURE GRAN PERCENT AUTO 0.5 % (0.0-4.9); LYMPHOCYTES ABSOLUTE AUTO 1.59 10^3/uL (0.60-5.00); LYMPHOCYTES PERCENT AUTO 17.2 % (24-44); MEAN CORPUSCULAR HEMOGLOBIN 31.8 pg (27.0-32.0); MEAN CORPUSCULAR HGB CONC 31.3 g/dL (32.0-36.0); MEAN CORPUSCULAR VOLUME 101.5 fL (83.0-97.0); MONOCYTES ABSOLUTE AUTO 0.66 10^3/uL (0.00-1.50); MONOCYTES PERCENT AUTO 7.2 % (0-10); NEUTROPHILS ABSOLUTE AUTO 6.68 x10^3/uL (1.80-8.00); NEUTROPHILS PERCENT AUTO 72.5 % (41-71); PLATELET COUNT,PLT 212 10^3/uL (150-400); RED BLOOD CELL COUNT 3.43 x10^6/uL (4.50-6.00); WHITE BLOOD CELL COUNT,WBC 9.2 10^3/uL (4.0-11.0)
[2023-08-25 14:07] LABS: ALANINE AMINOTRANSFERASE,ALT 6 U/L (12-78); ALBUMIN 2.3 g/dL (3.4-5.0); ALKALINE PHOSPHATASE 75 U/L (46-116); ASPARTATE AMNIOTRANSFERASE,AST 10 U/L (15-37); BILIRUBIN TOTAL 0.4 mg/dL (0.0-1.0); BLOOD UREA NITROGEN,BUN 33 mg/dL (7-18); CARBON DIOXIDE,CO2 34 mmol/L (21-32); CHLORIDE,CL 96 mEq/L (98-106); GLUCOSE RANDOM 162 mg/dL (75-99); POTASSIUM,K 3.7 mEq/L (3.5-5.0); PROTEIN TOTAL,TP 7.2 g/dL (6.4-8.2); SODIUM,NA 139 mEq/L (136-145)
[2023-08-25 14:08] LABS: ESTIMATED GFR 36 mL/min (>=60)
[2023-08-25 15:39] LABS: INR 12.48 (0.92-1.18); PROTHROMBIN TIME 122.9 SEC (9.3-11.3)
[2023-08-25] MEDS ORDERED: REMDESIVIR 200 MG in Sodium Chloride 0.9% 250 ML IV ONE (15:53)
[2023-08-25] MEDS ORDERED: Phytonadione 5 MG Tab PO ONE (15:54)
[2023-08-25] MEDS ORDERED: Sodium Chloride 0.9% 500 ML IV SCH (16:00)
[2023-08-25] MEDS ORDERED: Acetaminophen 325 MG Tab PO PRN (16:44)
[2023-08-25] MEDS ORDERED: Docusate Sodium 100 MG Cap PO PRN (16:44)
[2023-08-25] MEDS ORDERED: Polyethylene Glycol 3350 Powder 17 GM Packet PO PRN (16:44)
[2023-08-25] MEDS ORDERED: Aluminum Hydroxide/Magnesium Hydroxide/Simethicone Susp 30 ML Cup PO PRN (16:47)
[2023-08-25] MEDS ORDERED: Albuterol 0.083% 2.5 MG/3 ML Neb Soln INH PRN (16:47)
[2023-08-25] MEDS ORDERED: Magnesium Hydroxide 400 MG/5 ML Susp 30 ML Cup PO PRN (16:47)
[2023-08-25] MEDS ORDERED: Non-Formulary Medication 1 Each (Naloxone 4 MG Spray) NS SCH (17:00)
[2023-08-25] MEDS: Potassium Chloride 20 MEQ Tab.ER PO SCH (17:27)
[2023-08-25] MEDS: Bumetanide 1 MG Tab PO SCH (17:27)
[2023-08-25] MEDS: Gabapentin 300 MG Cap PO SCH (19:36)
[2023-08-25] MEDS: Allopurinol 100 MG Tab PO SCH (19:36)
[2023-08-25] MEDS: Divalproex Sodium 250 MG Tab.ER PO SCH (19:39)
[2023-08-25] MEDS: Carvedilol 12.5 MG Tab PO SCH (19:43)
[2023-08-25] MEDS: Carbidopa/Levodopa 25-100 MG Tab PO SCH (19:43)
[2023-08-25] MEDS ORDERED: Amitriptyline 25 MG Tab PO SCH (20:00)
[2023-08-25] MEDS ORDERED: Hypromellose 0.3% Ophth Soln 15 ML Bottle EYEBOTH SCH (20:00)
[2023-08-25] MEDS ORDERED: Acetaminophen 500 MG Tab PO SCH (20:00)
[2023-08-25] MEDS ORDERED: atorvaSTATin 20 MG Tab PO SCH (20:00)
[2023-08-25] MEDS ORDERED: oxyCODONE 5 MG Tab PO SCH (20:00)
[2023-08-26] MEDS: Potassium Chloride 20 MEQ Tab.ER PO SCH (07:06)
[2023-08-26] MEDS: Gabapentin 300 MG Cap PO SCH (07:06)
[2023-08-26] MEDS: Carbidopa/Levodopa 25-100 MG Tab PO SCH (07:07)
[2023-08-26] MEDS: Allopurinol 100 MG Tab PO SCH (07:08)
[2023-08-26] MEDS: Bumetanide 1 MG Tab PO SCH (07:09)
[2023-08-26] MEDS: Divalproex Sodium 250 MG Tab.ER PO SCH (07:09)
[2023-08-26] MEDS: Carvedilol 12.5 MG Tab PO SCH (07:16)
[2023-08-26 07:50] LABS: BASOPHILS ABSOLUTE AUTO 0.02 10^3/uL (0.00-0.50); BASOPHILS PERCENT AUTO 0.3 % (0-1); EOSINOPHILS ABSOLUTE AUTO 0.23 10^3/uL (0.00-1.50); EOSINOPHILS PERCENT AUTO 2.9 % (0-6); HEMATOCRIT 33.9 % (42.0-52.0); HEMOGLOBIN 10.7 g/dL (14.0-18.0); IMMATURE GRAN ABSOLUTE AUTO 0.07 10^3/uL (0.00-0.49); IMMATURE GRAN PERCENT AUTO 0.9 % (0.0-4.9); LYMPHOCYTES ABSOLUTE AUTO 1.74 10^3/uL (0.60-5.00); LYMPHOCYTES PERCENT AUTO 21.8 % (24-44); MEAN CORPUSCULAR HEMOGLOBIN 31.8 pg (27.0-32.0); MEAN CORPUSCULAR HGB CONC 31.6 g/dL (32.0-36.0); MEAN CORPUSCULAR VOLUME 100.9 fL (83.0-97.0); MONOCYTES ABSOLUTE AUTO 0.63 10^3/uL (0.00-1.50); MONOCYTES PERCENT AUTO 7.9 % (0-10); NEUTROPHILS PERCENT AUTO 66.2 % (41-71); PLATELET COUNT,PLT 204 10^3/uL (150-400); RED BLOOD CELL COUNT 3.36 x10^6/uL (4.50-6.00)
[2023-08-26 07:52] LABS: INR 4.04 (0.92-1.18)
[2023-08-26 07:59] LABS: ALBUMIN 2.3 g/dL (3.4-5.0); BILIRUBIN DIRECT 0.1 mg/dL (0.0-0.3); BILIRUBIN TOTAL 0.5 mg/dL (0.0-1.0); CALCIUM 8.8 mg/dL (8.4-10.1); CREATININE 1.8 mg/dL (0.7-1.3); EST CRCL DRUG DOSING (CG) 44.31 mL/min; POTASSIUM,K 3.5 mEq/L (3.5-5.0); PROTEIN TOTAL,TP 6.9 g/dL (6.4-8.2)
[2023-08-26] MEDS ORDERED: Insulin Lispro 100 Units/ML 3 ML Vial SUBCUT SCH (08:00)
[2023-08-26] MEDS ORDERED: Propranolol 60 MG Cap.ER PO SCH (08:00)
[2023-08-26] MEDS ORDERED: Cyanocobalamin (Vitamin B12) 1,000 MCG Tab PO SCH (08:00)
[2023-08-26] MEDS ORDERED: Aspirin 81 MG Tab.EC PO SCH (08:00)
[2023-08-26] MEDS ORDERED: Magnesium Oxide 400 MG Tab PO SCH (08:00)
[2023-08-26] MEDS ORDERED: Metolazone 5 MG Tab PO SCH (08:00)
[2023-08-26] MEDS ORDERED: Insulin Glarg,Human.Rec.Analog 100 Unit/ML 10 ML Vial SUBCUT SCH (08:00)
[2023-08-26] MEDS ORDERED: ZIPRASIDONE HCL 80 MG PO SCH (08:45)
[2023-08-26] MEDS ORDERED: SEMAGLUTIDE 0.25 MG/0.4 ML SQ SCH (08:45)
[2023-08-26] MEDS ORDERED: Silver Nitrate Applicator Each TOP ONE (10:16)
[2023-08-26] MEDS ORDERED: Lidocaine 1% 5 ML VIAL INJECT ONE (10:16)
[2023-08-26] MEDS ORDERED: Tranexamic Acid 1,000 MG/10 ML Vial TOP ONE (12:19)
[2023-08-26] MEDS ORDERED: REMDESIVIR 100 MG in Sodium Chloride 0.9% 100 ML IV SCH (16:00)
== END 2023-08-26 10:56 | disposition home or self-care (01) | DRG 178 ==
LOC: CC.MS 12:42 → CC.FCMC 12:42 → UNDOADMIN 14:30 → CC.MS 14:30
PROVIDERS: ADMIT Nurse Practitioner; ATTEND Nurse Practitioner
PROC: XW033E5 Introduction of Remdesivir Anti-infective into Peripheral Vein, Percutaneous Approach, New Technology Group 5 (ICD-10-PCS; 2023-08-25)
PROC: 0HBRXZZ Excision of Toe Nail, External Approach (ICD-10-PCS; principal; 2023-08-26)
DX: U07.1 COVID-19 (principal); I13.0 Hypertensive heart and chronic kidney disease with heart failure and stage 1 through stage 4 chronic kidney disease, or unspecified chronic kidney disease; I50.9 Heart failure, unspecified; R79.1 Abnormal coagulation profile; N18.32 Chronic kidney disease, stage 3b; F32.A Depression, unspecified; F31.9 Bipolar disorder, unspecified; M19.90 Unspecified osteoarthritis, unspecified site; I25.10 Atherosclerotic heart disease of native coronary artery without angina pectoris; E11.22 Type 2 diabetes mellitus with diabetic chronic kidney disease; E78.5 Hyperlipidemia, unspecified; E11.42 Type 2 diabetes mellitus with diabetic polyneuropathy; E11.51 Type 2 diabetes mellitus with diabetic peripheral angiopathy without gangrene; Z79.4 Long term (current) use of insulin; Z79.82 Long term (current) use of aspirin; Z79.899 Other long term (current) drug therapy; Z86.711 Personal history of pulmonary embolism; Z99.81 Dependence on supplemental oxygen; Z90.49 Acquired absence of other specified parts of digestive tract; Z90.89 Acquired absence of other organs; Z89.619 Acquired absence of unspecified leg above knee
CPT/HCPCS: 36415; 71046; 80053; 82248; 83605; 83735; 84484; 85025; 85610; 86140; 87804; 93005; A9270-GY; J0248; J3490; J7040; J7050; U0002

== ENCOUNTER 2023-10-09 07:11 | Emergency (ER) | payer MEDICARE, MEDICAID ==
[2023-10-09 07:28] LABS: BASOPHILS ABSOLUTE AUTO 0.02 10^3/uL (0.00-0.50); BASOPHILS PERCENT AUTO 0.1 % (0-1); EOSINOPHILS ABSOLUTE AUTO 0.02 10^3/uL (0.00-1.50); EOSINOPHILS PERCENT AUTO 0.1 % (0-6); HEMATOCRIT 34.9 % (42.0-52.0); HEMOGLOBIN 11.3 g/dL (14.0-18.0); IMMATURE GRAN ABSOLUTE AUTO 0.06 10^3/uL (0.00-0.49); IMMATURE GRAN PERCENT AUTO 0.4 % (0.0-4.9); LYMPHOCYTES ABSOLUTE AUTO 1.85 10^3/uL (0.60-5.00); LYMPHOCYTES PERCENT AUTO 11.5 % (24-44); MEAN CORPUSCULAR HEMOGLOBIN 32.1 pg (27.0-32.0); MEAN CORPUSCULAR HGB CONC 32.4 g/dL (32.0-36.0); MEAN CORPUSCULAR VOLUME 99.1 fL (83.0-97.0); MONOCYTES ABSOLUTE AUTO 1.12 10^3/uL (0.00-1.50); NEUTROPHILS ABSOLUTE AUTO 12.96 x10^3/uL (1.80-8.00); NEUTROPHILS PERCENT AUTO 80.9 % (41-71); PLATELET COUNT,PLT 247 10^3/uL (150-400); RED BLOOD CELL COUNT 3.52 x10^6/uL (4.50-6.00)
[2023-10-09 07:47] LABS: ALBUMIN 2.3 g/dL (3.4-5.0); BILIRUBIN TOTAL 0.4 mg/dL (0.0-1.0); C-REACTIVE PROTEIN 4.85 mg/dL (<=0.50); CALCIUM 9.1 mg/dL (8.4-10.1); CREATININE 2.2 mg/dL (0.7-1.3); EST CRCL DRUG DOSING (CG) 34.1 mL/min; PROTEIN TOTAL,TP 7.2 g/dL (6.4-8.2)
[2023-10-09] MEDS: cefTRIAXone 2 GM Vial IVPUSH ONE (08:35)
[2023-10-09] MEDS: Azithromycin 250 MG Tab PO ONE (08:35)
[2023-10-09] MEDS: Bumetanide 2.5 MG/10 ML MDV IVPUSH ONE (08:47)
== END 2023-10-09 10:00 | disposition home or self-care (01) ==
LOC: CC.ED 07:11
DX: J06.9 Acute upper respiratory infection, unspecified (principal); I13.0 Hypertensive heart and chronic kidney disease with heart failure and stage 1 through stage 4 chronic kidney disease, or unspecified chronic kidney disease; I50.42 Chronic combined systolic (congestive) and diastolic (congestive) heart failure; N18.9 Chronic kidney disease, unspecified; D72.829 Elevated white blood cell count, unspecified; E11.22 Type 2 diabetes mellitus with diabetic chronic kidney disease; E78.00 Pure hypercholesterolemia, unspecified; I25.10 Atherosclerotic heart disease of native coronary artery without angina pectoris; Z79.82 Long term (current) use of aspirin; Z79.84 Long term (current) use of oral hypoglycemic drugs; Z79.899 Other long term (current) drug therapy
CPT/HCPCS: 36415; 71045; 80053; 83605; 83880; 85025; 86140; 87040; 87804; 96374; 96375; 99284; 99284-25; A9270-GY; J0696; J3490; U0002

== ENCOUNTER 2024-03-14 06:23 | Emergency (ER) | payer MEDICARE, MEDICAID ==
[2024-03-14] MEDS: Sodium Chloride 0.9% 1,000 ML IV SCH ×2 (06:37→07:47)
[2024-03-14] MEDS: Acetaminophen 650 MG Supp RECTAL ONE (06:48)
[2024-03-14 06:59] LABS: EOSINOPHILS ABSOLUTE AUTO 0.01 10^3/uL (0.00-1.50); EOSINOPHILS PERCENT AUTO 0.1 % (0-6); HEMATOCRIT 35.7 % (42.0-52.0); HEMOGLOBIN 11.3 g/dL (14.0-18.0); IMMATURE GRAN ABSOLUTE AUTO 0.15 10^3/uL (0.00-0.49); IMMATURE GRAN PERCENT AUTO 1.5 % (0.0-4.9); LYMPHOCYTES ABSOLUTE AUTO 0.44 10^3/uL (0.60-5.00); LYMPHOCYTES PERCENT AUTO 4.3 % (24-44); MEAN CORPUSCULAR HGB CONC 31.7 g/dL (32.0-36.0); MEAN CORPUSCULAR VOLUME 98.1 fL (83.0-97.0); MONOCYTES ABSOLUTE AUTO 0.42 10^3/uL (0.00-1.50); MONOCYTES PERCENT AUTO 4.1 % (0-10); NEUTROPHILS ABSOLUTE AUTO 9.23 x10^3/uL (1.80-8.00); PLATELET COUNT,PLT 233 10^3/uL (150-400); RED BLOOD CELL COUNT 3.64 x10^6/uL (4.50-6.00); WHITE BLOOD CELL COUNT,WBC 10.3 10^3/uL (4.0-11.0)
[2024-03-14 07:09] LABS: ALANINE AMINOTRANSFERASE,ALT 203 U/L (12-78); ALBUMIN 2.1 g/dL (3.4-5.0); ALKALINE PHOSPHATASE 224 U/L (46-116); BLOOD UREA NITROGEN,BUN 39 mg/dL (7-18); C-REACTIVE PROTEIN 7.55 mg/dL (<=0.50); CALCIUM 8.8 mg/dL (8.4-10.1); CARBON DIOXIDE,CO2 27 mmol/L (21-32); CHLORIDE,CL 95 mEq/L (98-106); CREATININE 2.1 mg/dL (0.7-1.3); GLUCOSE RANDOM 240 mg/dL (75-99); INR 2.74 (0.92-1.18); MAGNESIUM 1.7 mg/dL (1.8-2.4); POTASSIUM,K 3.6 mEq/L (3.5-5.0); PRO B-TYPE NATRIUR PEPT,BNPPRO 3359 pg/mL (0-1000); PROTHROMBIN TIME 27.4 SEC (9.3-11.3); SODIUM,NA 137 mEq/L (136-145)
[2024-03-14 07:24] LABS: ASPARTATE AMNIOTRANSFERASE,AST 346 U/L (15-37); ESTIMATED GFR 34 mL/min (>=60)
[2024-03-14 07:26] LABS: APPEARANCE,URINE CLEAR (CLEAR); BILIRUBIN,URINE SMALL (NEGATIVE); COLOR,URINE YELLOW (YELLOW); GLUCOSE,URINE NEGATIVE (NEGATIVE); KETONES,URINE NEGATIVE (NEGATIVE); LEUKOCYTE ESTERASE,URINE MODERATE (NEGATIVE); NITRITE,URINE NEGATIVE (NEGATIVE); OCCULT BLOOD,URINE SMALL (NEGATIVE); PROTEIN,URINE 30 mg/dL (NEGATIVE)
[2024-03-14] MEDS: cefTRIAXone 2 GM Vial IVPUSH ONE (07:27)
[2024-03-14 07:34] LABS: D-DIMER QUANTITATIVE 18.99 (0.00-0.50)
[2024-03-14] MEDS: Acetaminophen 650 MG Supp ONE (07:34)
[2024-03-14] MEDS: Sodium Chloride 0.9% 1,000 ML ONE (07:34)
[2024-03-14 08:34] LABS: CORONAVIRUS COVID-19 NAA NEGATIVE (NEGATIVE); INFLUENZA A NAA NEGATIVE (NEGATIVE); INFLUENZA B NAA NEGATIVE (NEGATIVE)
[2024-03-14] MEDS: Midazolam 1 MG/ML 2 ML SDV IVPUSH ONE (08:43)
[2024-03-14] MEDS: Succinylcholine 200 MG/10 ML MDV IV ONE (08:56)
[2024-03-14 09:01] LABS: BACTERIA,URINE MODERATE /HPF (NOT SEEN); WBC CLUMPS,URINE FEW /HPF (NOT SEEN); WBC,URINE 40-50 /HPF (0-5)
[2024-03-14 10:15] VITALS: BP 121/69; PULSE 84
[2024-03-14] MEDS: Succinylcholine 200 MG/10 ML MDV ONE (10:18)
[2024-03-14] MEDS: Rocuronium 50 MG/5 ML Vial ONE (10:18)
== END 2024-03-14 09:41 ==
LOC: CC.ED 06:23
DX: I46.9 Cardiac arrest, cause unspecified (principal); A41.9 Sepsis, unspecified organism; R65.20 Severe sepsis without septic shock; R41.82 Altered mental status, unspecified; N30.01 Acute cystitis with hematuria; I12.9 Hypertensive chronic kidney disease with stage 1 through stage 4 chronic kidney disease, or unspecified chronic kidney disease; N18.30 Chronic kidney disease, stage 3 unspecified; E78.00 Pure hypercholesterolemia, unspecified; E11.9 Type 2 diabetes mellitus without complications; F17.210 Nicotine dependence, cigarettes, uncomplicated; Z79.4 Long term (current) use of insulin; Z79.82 Long term (current) use of aspirin; Z79.01 Long term (current) use of anticoagulants; Z79.899 Other long term (current) drug therapy
CPT/HCPCS: 0240U; 31500; 36415; 43752; 51702; 70450; 71045; 80053; 81001; 83605; 83735; 83880; 84484; 85025; 85379; 85610; 86140; 87040; 87077; 87086; 87088; 87186; 92950; 93005; 93010; 96361; 96374; 99284; 99285-25; A9270-GY; J0330; J0696; J2250; J7030